=== PATIENT | female | born 1970 | race Caucasian/White ===

== ENCOUNTER 2017-10-14 13:05 | Emergency (ER) | payer BC, OTHER ==
[~2017-10-14] VITALS: Ht 157.5 cm; Wt 113.0 kg
[~2017-10-14 13:05] MED LIST: CYAN3INJ; Ferrous Sulfate PO
[2017-10-14 13:09] VITALS: TEMP 36.7; Ht 157.5 cm; Wt 113.0 kg
[2017-10-14] MEDS ORDERED: IRON20IN IV (13:29)
[2017-10-14] MEDS ORDERED: CYNI1000 INJ (13:29)
--- NOTE | 2017-10-14 14:45 | EMERGENCY ROOM VISIT NOTE ---
History Report prepared by Daniel: Wendy Bajwa Under the Supervision of: Dr. Kobe Lindsey D.O. First contact with patient: 13:14 Chief Complaint: KNEEPAIN Stated Complaint: KNEE PAIN History of Present Illness The patient is a 46 year old female who presents to the Emergency Room with complaints of worsening right knee pain beginning yesterday. She developed some pain behind her right knee yesterday that radiated down into her lower right leg. She thought that it might be arthritis. This morning she woke up and her pain was worse. The patient reports a "pulling" pain behind her right knee that is worse with walking. She states that "shoots" down her right leg with walking. She rates her pain as a 6/10 in severity. She went to urgent care today and had x-rays. They revealed some arthritis but the patient states they were worried about a blood clot so they sent her to the ED for further evaluation. The patient denies chest pain, shortness of breath, and recent trauma or injury to her leg. She denies any recent surgeries or long trips. She does not take any blood thinners. Source of History: patient Onset: yesterday Position: knee (right) Symptom Intensity: 6/10 Quality: other (pulling/shooting) Timing: worsening Modifying Factors (Worsening): other (walking) Associated Symptoms: No chest pain, No SOB Note: Pt denies recent trauma, injury, surgery, long trips. Review of Systems See HPI for pertinent positives & negatives. A total of 10 systems reviewed and were otherwise negative. Past Medical & Surgical Medical Problems: (1) arthritis in left knee (2) broken ankles bilaterally (3) broken right wrist Family History Hypertension Social History Smoking Status: Never Smoker Alcohol Use: occasionally Marital Status: single Housing Status: lives with family Occupation Status: employed Current/Historical Medications Scheduled Cyanocobalamin (Cyanocobalamin), 1 DOSE INJ 2XMONTHLY Iron Sucrose (Venofer), 1 DOSE IV Q6MO Allergies Coded Allergies: Latex1 -Allergic Contact Dermititis (Verified Adverse Reaction, Mild, SKIN REACTION, 10/14/17) Physical Exam Vital Signs Date Time Temp Pulse Resp B/P (MAP) Pulse Ox O2 Delivery O2 Flow Rate FiO2 10/14/17 14:55 75 20 119/81 98 10/14/17 14:16 74 16 142/77 98 Room Air 10/14/17 13:09 36.7 87 18 172/80 98 Room Air Physical Exam CONSTITUTIONAL/VITAL SIGNS: Reviewed / noted above. GENERAL: Non-toxic in appearance. INTEGUMENTARY: Warm, dry, and Bradley. HEAD: Normocephalic. EYES: without scleral icterus or trauma. ENT/OROPHARYNX: clear and moist. LYMPHADENOPATHY/NECK: Is supple without lymphadenopathy or meningismus. RESPIRATORY: Lungs clear and equal. CARDIOVASCULAR: Regular rate and rhythm. GI/ABDOMEN: Soft and nontender. No organomegaly or pulsatile mass. No rebound or guarding. Normal bowel sounds. EXTREMITIES: Warm and well perfused. Mild tenderness to popliteal region of right leg, mild fullness of that area. BACK: No CVA tenderness. NEUROLOGICAL: Intact without focal deficits. PSYCHIATRIC: normal affect. MUSCULOSKELETAL: Normally developed with good muscle tone. Medical Decision & Procedures ER Provider Diagnostic Interpretation: Radiology results as stated below per my review and radiologist interpretation: ULTRASOUND R VENOUS DOPP LOWER EXT UNILAT CLINICAL HISTORY: Right leg swelling COMPARISON STUDY: No previous studies for comparison. FINDINGS: Real-time and color flow Doppler imaging were performed. Flow was seen within the femoral, popliteal and calf veins with no intraluminal thrombus demonstrated. The saphenous vein is patent. IMPRESSION: No evidence of right lower extremity DVT Electronically signed by: Xiang Higgins M.D. 10/14/2017 2:42 PM Dictated Date/Time: 10/14/2017 2:42 PM ED Course 1314: Previous medical records were reviewed. The patient was evaluated in room B8. A complete history and physical examination was performed. 1447: I reassessed the patient at this time. She is feeling better and resting comfortably. I discussed the results and treatment plan with the patient. I answered all pertaining questions that she had. She expressed understanding and verbalized agreement. The patient will be discharged home. Medical Decision Differential diagnosis: Etiologies such as DVT, musculoskeletal, infection, joint effusion, trauma, lymphedema, idiopathic, CHF, as well as others were entertained. This is a 46-year-old female who presents to the ED with a chief complaint of right-sided knee pain. The patient states that she was seen at urgent care and had some x-rays that showed some osteoarthritis. She reports that she was sent here for ultrasound to rule out DVT. She denies any other symptoms such as fevers, chest pains or shortness of breath. Her exam reveals some mild fullness and tenderness to the posterior right knee in the popliteal region. There is no significant edema compared to the other side. Ultrasound of the leg did not show evidence of DVT. The patient was told the results. She is felt to be stable for discharge. Medication Reconcilliation Current Medication List: was personally reviewed by me Blood Pressure Screening Patient's blood pressure: Elevated blood pressure Blood pressure disposition: Referred to PCP Impression Primary Impression: Knee pain Scribe Attestation The scribe's documentation has been prepared under my direction and personally reviewed by me in its entirety. I confirm that the note above accurately reflects all work, treatment, procedures, and medical decision making performed by me. Departure Information Dispostion Home / Self-Care Referrals Quinten Karimi,D.O. (PCP) Patient Instructions My [facility] Additional Instructions Take Tylenol/Motrin as needed for pain. Follow-up with orthopedist for further evaluation if your symptoms persist. Ultrasound did not show DVT.
[2017-10-14 14:55] VITALS: BP 119/81; PULSE 75; O2SAT 98
== END 2017-10-14 14:56 | disposition home or self-care (01) ==
LOC: C.EDB 13:08
DX: M25.561 Pain in right knee (principal); M17.12 Unilateral primary osteoarthritis, left knee; Z82.49 Family history of ischemic heart disease and other diseases of the circulatory system; Z91.040 Latex allergy status; Z79.899 Other long term (current) drug therapy

== ENCOUNTER 2021-12-13 09:51 | Observation (INO) ==
--- NOTE | 2021-11-12 11:55 | PAT Medication Instructions ---
Medication Instructions Date of Service November 12, 2021 Home Medications Medication Instructions Recorded atorvastatin 40 mg tablet 40 mg PO HS #30 tab 09/03/18 nitroglycerin 0.4 mg sublingual 0.4 mg SUBLINGUAL UD PRN #30 tab 09/03/18 tablet (Nitrostat) ondansetron HCl 4 mg tablet 4 mg PO Q8 PRN #15 tab 11/02/20 cyanocobalamin (vitamin B-12) 1,000 mcg/mL injection solution 1 dose IM atorvastatin 40 mg tablet 40 mg PO HS nitroglycerin 0.4 mg sublingual tablet (Nitrostat) 0.4 mg SUBLINGUAL UD PRN aspirin 81 mg tablet,delayed release 81 mg PO QAM isosorbide mononitrate 60 mg tablet,extended release 24 hr 60 mg PO QAM pantoprazole 40 mg tablet,delayed release 40 mg PO QAM sertraline 25 mg tablet 25 mg PO QAM losartan 25 mg tablet 12.5 mg PO QAM metoprolol succinate 50 mg tablet,extended release 24 hr 25 mg PO QAM ondansetron HCl 4 mg tablet 4 mg PO Q8 PRN potassium 99 mg tablet 99 mg PO QAM Continue as directed nitroglycerin 0.4 mg sublingual tablet (Nitrostat) 0.4 mg SUBLINGUAL UD PRN (if needed) cyanocobalamin (vitamin B-12) 1,000 mcg/mL injection solution 1 dose IM DO NOT take the morning of surgery losartan 25 mg tablet 12.5 mg PO QAM potassium 99 mg tablet 99 mg PO QAM Take morning of surgery With a small sip of water, OTHERWISE NOTHING TO EAT OR DRINK AFTER MIDNIGHT: aspirin 81 mg tablet,delayed release 81 mg PO QAM (continue as normal unless told otherwise by surgeon) isosorbide mononitrate 60 mg tablet,extended release 24 hr 60 mg PO QAM pantoprazole 40 mg tablet,delayed release 40 mg PO QAM sertraline 25 mg tablet 25 mg PO QAM metoprolol succinate 50 mg tablet,extended release 24 hr 25 mg PO QAM ondansetron HCl 4 mg tablet 4 mg PO Q8 PRN (if needed) Take evening before surgery atorvastatin 40 mg tablet 40 mg PO HS ondansetron HCl 4 mg tablet 4 mg PO Q8 PRN (if needed) Other Notes If you have any questions please call us at [phone] or [phone] or [phone] or [phone]
--- NOTE | 2021-11-13 10:59 | Anesthesiology Consultation ---
Date of Service November 13, 2021 Assessment & Plan (1) Encounter for pre-operative examination: - upcoming cardiology appointment prior to surgery for routine follow-up 12/06, will have pre-op evaluation also coordinated. Awaiting cardiology pre-op evaluation. - COVID screening: Per assessment on 11/13/2021: Travel screen negative, no known COVID-19 positive contacts or current COVID-19 related symptoms in past 2 weeks. Surgeon arranging preop COVID testing, scheduled 12/13/2021. Awaiting results. Pt confirmed understanding is to go for pre-op COVID test as positive COVID test was more than 3 months ago. Chart Review Chart Review: Pending: Refer to Additional Notes / Consult section and Patient seen in Pre Admission Testing Teaching & Discussion Pre-Anesthesia Teaching/Discussion Notes: Instructed NPO after midnight before surgery, except medications with 15 cc of water. Medication instructions provided according to the PAT guidelines. History Surgery Operation Date: 12/13/21 07:00 Proposed Procedures p Left Total Knee Arthroplasty - Jaspreet Hodge, Height/Weight Height: 5 ft 2 in Weight: 135.9 kg Allergies Allergy/AdvReac Type Severity Reaction Status Date / Time clopidogrel [From Plavix] Allergy Intermediate Rash Verified 11/08/21 10:25 latex AdvReac Intermediate Rash Verified 11/08/21 10:25 Medications Home Medications Medication Instructions Recorded Confirmed Last Taken cyanocobalamin (vitamin B-12) 1 dose IM Q14D 09/01/18 11/12/21 2 Weeks Ago 1,000 mcg/mL injection solution ~10/18/20 atorvastatin 40 mg tablet 40 mg PO HS #30 tab 09/03/18 11/12/21 10/31/20 20:00 nitroglycerin 0.4 mg sublingual 0.4 mg SUBLINGUAL UD PRN #30 tab 09/03/18 11/12/21 09/27/20 tablet (Nitrostat) aspirin 81 mg tablet,delayed 81 mg PO QAM 11/08/18 11/12/21 10/31/20 09:00 release isosorbide mononitrate 60 mg 60 mg PO QAM 11/08/18 11/12/21 11/01/20 10:00 tablet,extended release 24 hr pantoprazole 40 mg tablet,delayed 40 mg PO QAM 11/08/18 11/12/21 11/01/20 10:00 release sertraline 25 mg tablet 25 mg PO QAM 11/08/18 11/12/21 10/31/20 09:00 losartan 25 mg tablet 12.5 mg PO QAM tab 03/10/19 11/12/21 11/01/20 10:00 metoprolol succinate 50 mg 25 mg PO QAM tab 10/31/20 11/12/21 11/01/20 10:00 tablet,extended release 24 hr ondansetron HCl 4 mg tablet 4 mg PO Q8 PRN #15 tab 11/02/20 11/12/21 Unknown potassium 99 mg tablet 99 mg PO QAM 11/08/21 11/12/21 Unknown Past Medical History Medical History (Updated 11/13/21 @ 11:06 by Doorta Tavares PA-C) Anxiety and depression BMI 50.0-59.9, adult 57.6 Bowel obstruction hx, 2009 CAD (coronary artery disease) Per 09/02/2018 cardiac cath (done for NSTEMI): Severe CAD involving small circumflex PL 1 branch with EVIN 3 flow. Moderate nonobstructive CAD involving small D2, small to medium caliber D3, circumflex, circumflex PDA. Dyslipidemia GERD (gastroesophageal reflux disease) controlled, stable per pt Gestational diabetes mellitus (GDM) HX History of anesthesia reaction SLOW TO WAKE UP History of COVID-19 06/2021; fever, body aches, chills, cough, sob; resolved. History of HPV infection HX HPV Hypertension controlled, stable per pt Morbid obesity Non-ST elevation myocardial infarction (NSTEMI) 09/01/18. Cardiac cath showed severe single vessel dz not amenable to PCI. Medical therapy recommended, with DAPT x 1 yr. Osteoarthritis of knees, bilateral Patient denies h/o stroke, seizures, heart attack, heart failure, blood clots or blood transfusions. Exercise / Class Metabolic Activity III < 4 Walking/Shop/Light housework (denies CP or SOB, no FOS in home) Past Family History Family History Sister Myocardial infarction, Onset Age: 32 Hypertension Ovarian cancer Father Congestive heart failure Hypercholesterolemia Hypertension Colorectal cancer Mother Breast cancer Uterine cancer Other Cancer Family history of colon cancer in father Past Surgical History Surgical History (Updated 11/13/21 @ 11:22 by Dorota Tavares PA-C) Family history of reaction to anesthesia FATHER - SLOW TO WAKE UP History of appendectomy History of arthroscopy of left shoulder 11/01/20 [facility]: LMA#4 x 1. No post-op issues per anesthesia progress note. History of cardiac catheterization Severe CAD involving small circumflex PL one branch which appeared to be too small for PCI. Medical therapy was recommended. History of gastric bypass 2012 History of intestinal surgery for bowel obstruction after delivery, denies ever having colostomy History of tonsillectomy and adenoidectomy History of wisdom tooth extraction Previous section + BTL S/P tubal ligation Past Anesthesia History Other (slow to wake) History of PONV No Hx of Motion Sickness and History of PONV Social History Smoking Status: Never smoker Do You Dip or Chew Tobacco: No Hx Alcohol Use: No Hx Substance Use: No substance use type: does not use Review of Systems Snoring, denies witnessed apneas. Sleep study 2009: positive for sleep apnea, resolved after gastric gypass but has had recurrence of symptoms with gradual weight gain; denies recent testing. Intermittent nonproductive cough when lays down with post-nasal drainage. Patient denies chest pain, shortness of breath, dyspnea on exertion, fever, chil ls, cough, wheezing, or palpitations. Physical Exam Vital Signs Vitals BP 118/80 P 71 TEMP 98.6 SP02 97% on RA RESP 16 Physical Full cervical extension range of motion without pain Full TMJ range of motion TMD 3.5 finger breaths Mallampati Score 3 Dentition: intact, implant right upper front, several missing right lower side teeth, one bridge-pt unsure of location; denies chipped or loose teeth Lungs: normal respiratory effort. Clear throughout to auscultation, no adventitious breath sounds Cardiac: regular rate and rhythm, no murmurs noted Carotid arteries: negative bruit bilat Lab Results Anesthesia Preop Results Results Anesthesia Widget: WBC 8.42 K/uL (4.8-10.8) 11/13/21 Hgb 13.3 g/dL (12.0-16.0) 11/13/21 Hct 39.8 % (37-47) 11/13/21 Plt 306 K/uL (130-400) 11/13/21 Na 140 mmol/L (136-145) 11/13/21 K 4.3 mmol/L (3.5-5.1) 11/13/21 Cl 109 mmol/L (98-107) H 11/13/21 CO2 26 mmol/L (21-32) 11/13/21 BUN 12 mg/dl (6-23) 11/13/21 Creat 0.73 mg/dl (0.6-1.2) 11/13/21 Glucose Level 95 mg/dl (70-99(Fasting)) 11/13/21 PT 10.7 Seconds (9.0-12.0) 11/13/21 PTT 27.2 Seconds (21.0-31.0) 11/13/21 INR 1.0 (0.9-1.1) 11/13/21 Blood Type A Positive 11/13/21 Antibody Screen NEGATIVE 11/13/21 Testing Electrocardiogram Date: 11/13/21 NSR, rate 70 bpm Incomplete RBBB Chest X-Ray Date: 11/13/21 FINDINGS: No lines and tubes are seen. The cardiomediastinal silhouette is normal. The lungs are clear. No evidence of pleural effusion or pneumothorax. IMPRESSION: No acute chest disease. Echocardiogram Date: 09/02/18 EF 60-65% No regional wall motion abnormalities Mild cLVH No significant diastolic dysfunction No significant valvular abnormalities Cardiac Catheterization Date: 09/02/18 Left main: without significant CAD. LAD: There is no significant CAD within the LAD. small caliber D2 with proximal to mid 50-70% stenosis. EVIN 3 flow. There is a small to medium caliber D3 with proximal 50-60% stenosis and mid diffuse 50% stenosis. Circumflex: The circumflex is large and codominant. Mid circumflex diffuse 20%. Distal circumflex 20-30%. There is a small caliber PL with mid 70 to 80% stenosis at the bifurcation of small superior branch. EVIN 3 flow. Circumflex PDA with diffuse proximal 50-60% smooth stenosis. Small PL 2 without significant CAD. Right coronary artery: The RCA is large and codominant. No significant CAD within the RCA, PDA, or PL branch. Impression: 1. Severe CAD involving small circumflex PL 1 branch with EVIN 3 flow. 2. Moderate nonobstructive CAD involving small D2, small to medium caliber D3, circumflex, circumflex PDA. 3. Normal LVEDP. 4. No aortic stenosis. Plan: 1. Medical therapy is recommended. PL1 appears too small for PCI. Images were reviewed by interventional Cardiology. 2. Initiate Plavix for 1 year. 3. High-intensity statin therapy, beta-aruna, another antianginal agents as necessary
--- NOTE | 2021-12-12 14:45 | History & Physical Report ---
Date of Service December 12, 2021 Assessment & Plan (1) Osteoarthritis of left knee: We will proceed with a left total knee arthroplasty. Postoperatively she will be started on aspirin for DVT prophylaxis and kept overnight for postop medical management. She plans to use energy physical therapy upon discharge. History of Present Illness Chief Complaint: Osteoarthritis of the left knee. Primary Care Provider: María Elena Rodriguez Blake Palmer is a pleasant 50-year-old female who has been dealing with chronicincreasing left knee pain. She has a history of gastric bypass surgery, but she still is overweight. Her knees are limiting her daily activities. She has really been trying to lose weight. She has had multiple injections of her knee without relief. This is to the point where she cannot continue to live with her knees the way they are. X-rays and clinical examination have been diagnostic for advanced osteoarthritis of the left knee. After failing conservative treatment, she has elected proceed with a left total knee arthroplasty.. Allergies Allergy/AdvReac Type Severity Reaction Status Date / Time clopidogrel [From Plavix] Allergy Intermediate Rash Verified 12/11/21 10:07 latex AdvReac Intermediate Rash Verified 12/11/21 10:07 Home Medications Medication Instructions Recorded Confirmed Type cyanocobalamin (vitamin B-12) 1 dose IM Q14D 09/01/18 12/11/21 History 1,000 mcg/mL injection solution nitroglycerin 0.4 mg sublingual 0.4 mg SUBLINGUAL UD PRN #30 tab 09/03/18 12/11/21 Rx tablet (Nitrostat) aspirin 81 mg tablet,delayed 81 mg PO QAM 11/08/18 12/11/21 History release isosorbide mononitrate 60 mg 60 mg PO QAM 11/08/18 12/11/21 History tablet,extended release 24 hr pantoprazole 40 mg tablet,delayed 40 mg PO QAM 11/08/18 12/11/21 History release sertraline 25 mg tablet 25 mg PO QAM 11/08/18 12/11/21 History losartan 25 mg tablet 12.5 mg PO QAM tab 03/10/19 12/11/21 History metoprolol succinate 50 mg 25 mg PO QAM tab 10/31/20 12/11/21 History tablet,extended release 24 hr ondansetron HCl 4 mg tablet 4 mg PO Q8 PRN #15 tab 11/02/20 12/11/21 Rx potassium 99 mg tablet 99 mg PO QAM 11/08/21 12/11/21 History atorvastatin 40 mg tablet 40 mg PO HS #90 tab 12/02/21 12/11/21 Rx tramadol 50 mg tablet 50 mg PO DAILY PRN 12/09/21 12/11/21 History Past Med/Surg History Medical History Anxiety and depression BMI 50.0-59.9, adult 57.6 Bowel obstruction hx, 2009 CAD (coronary artery disease) Per 09/02/2018 cardiac cath (done for NSTEMI): Severe CAD involving small circumflex PL 1 branch with EVIN 3 flow. Moderate nonobstructive CAD involving small D2, small to medium caliber D3, circumflex, circumflex PDA. Dyslipidemia GERD (gastroesophageal reflux disease) controlled, stable per pt Gestational diabetes mellitus (GDM) HX History of anesthesia reaction SLOW TO WAKE UP History of COVID-19 06/2021; fever, body aches, chills, cough, sob; resolved. History of HPV infection HX HPV Hypertension controlled, stable per pt Morbid obesity Non-ST elevation myocardial infarction (NSTEMI) 09/01/18. Cardiac cath showed severe single vessel dz not amenable to PCI. Medical therapy recommended, with DAPT x 1 yr. Osteoarthritis of knees, bilateral Surgical History Family history of reaction to anesthesia FATHER - SLOW TO WAKE UP History of appendectomy History of arthroscopy of left shoulder 11/01/20 [facility]: LMA#4 x 1. No post-op issues per anesthesia progress note. History of cardiac catheterization Severe CAD involving small circumflex PL one branch which appeared to be too small for PCI. Medical therapy was recommended. History of gastric bypass 2012 History of intestinal surgery for bowel obstruction after delivery, denies ever having colostomy History of tonsillectomy and adenoidectomy History of wisdom tooth extraction Previous section + BTL S/P tubal ligation Family History Sister Myocardial infarction, Onset Age: 32 Hypertension Ovarian cancer unsure of this as she is not in contact Father Congestive heart failure Hypercholesterolemia Hypertension Colorectal cancer Mother Breast cancer Uterine cancer Other Cancer Family history of colon cancer in father Social History Smoking Status: Never smoker Second Hand Exposure: No; Hx Alcohol Use: No Hx Substance Use: No Preferred Language: Lithuanian Communication Ability: Effective Visual Impairment: No Limitations Hearing Ability: Normal Cashier Gambling Required: No Beliefs That Will Affect Care: None marital status: Single Current Living Situation: Family Current Living Situation Comment: DAUGHTER current occupational status: employed current occupation: [employer] currently Feels Safe at Home: Yes Assistive Devices: Glasses Review of Systems All systems reviewed & are unremarkable except as noted in HPI & below. Physical Exam On physical examination of the left knee, she has a slight varus deformity. She has range of motion of 0 to 120 degrees no instability. She has pain of the distal medial femoral condyle and over the medial joint line. Constitutional WD/WN, vitals as above Eyes PERRL, conjunctivae normal, anicteric sclerae ENMT external ear and nose normal, oropharynx normal Neck trachea midline, no thyromegaly Respiratory normal respiratory effort Cardiovascular RRR, no murmur, no edema Gastrointestinal (Abdomen) normal bowel sounds, soft, nontender, no hepatosplenomegaly Psychiatric A+Ox3, euthymic affect Results & Data Results & Data Laboratory Results . Diagnostic Findings X-rays of the left knee show advanced osteoarthritis with joint space narrowing, osteophyte formation, and [id number] articulation. PG Care Time/CCT Total # of Minutes Spent Total Time Spent with Patient: Total time spent is greater than 50% in coordination of care (as documented) at patient's floor/unit and/or counseling patient: Coding Level of Care Code None Diagnoses Osteoarthritis of left knee M17.12
[~2021-12-13 09:51] MED LIST changes: +ACETAMINOPHEN 500 MG TAB PO SCH; +BUPIVACAINE 0.5 % 5 MG/1 ML PF 10ML VIAL ONE; -CYAN3INJ; +FAMOTIDINE 20 MG TAB PO SCH; -Ferrous Sulfate PO; +GABAPENTIN 300 MG CAP PO SCH; +Ketorolac (*for OR use only*) 30 MG, dexAMETHasone 4 MG, KETAMINE HCL (**OR use only) 1... INFIL SCH; +LR 500ML BOLUS, THEN 15ML/HR IV SCH; +LR 60ML/HR IV SCH; +ROPIVACAINE 0.5% 5 MG/ML 30 ML VIAL ONE; +TRANEXAMIC ACID 1,000 MG **IV Intra-op IV SCH; +TRANEXAMIC ACID 1,000 MG **IV Pre-op IV SCH; +VANCOMYCIN HCL 2,000 MG in SODIUM CHLORIDE 0.9% 500 ML IV SCH; +dexAMETHasone 4 MG TAB PO SCH
--- NOTE | 2021-12-13 10:48 | History & Physical Bridge Note ---
Date of Service December 13, 2021 History & Physical Bridge Note I have examined the patient, reviewed the History & Physical and in the interval since the performance of the History & Physical I have noted the following changes of clinical significance: no changes noted
[2021-12-13] MEDS ORDERED: ATROPINE SULFATE 0.1 MG/ML 10ML SYR IV PRN (12:02)
[2021-12-13] MEDS ORDERED: fentaNYL citrate 100 MCG/2 ML VIAL IV PRN (12:02)
[2021-12-13] MEDS ORDERED: ONDANSETRON INJ 2 MG/ML 2 ML VIAL IV PRN ×2 (12:02→17:08)
[2021-12-13] MEDS ORDERED: HYDROmorphone INJ 2 MG/ML SYR/VIAL IV PRN (12:02)
[2021-12-13] MEDS ORDERED: ePHEDrine sulfate 50 MG/ML AMP IV PRN (12:02)
[2021-12-13] MEDS ORDERED: MIDAZOLAM HCL 1 MG/ML 2ML VIAL ONE (12:20)
[2021-12-13] MEDS ORDERED: ORTHO JOINT ANESTHETIC ONE (13:02)
[2021-12-13] MEDS ORDERED: PROPOFOL IV EMULSION 10 MG/ML 20 ML VIAL IV ONE ×2 (14:03→14:15)
--- NOTE | 2021-12-13 15:24 | XRay Report ---
XR knee LT 1 or 2V routine CLINICAL HISTORY: Postoperative evaluation. COMPARISON: Left knee radiographs March 07, 2021. FINDINGS: Alignment of the total left knee arthroplasty is anatomic. There is no periprosthetic frac ture or unexpected radiopaque foreign body. There are skin hayde. IMPRESSION: Expected findings following total left knee arthroplasty. ACT 112: Negative or not required by law. Electronically signed by: Sampson Amador M.D. 12/13/2021 3:22 PM
--- NOTE | 2021-12-13 15:41 | Anesthesiology Progress Note ---
Date of Service December 13, 2021 Anesthesia Post Procedure Vital Signs Vital Signs: Temp Pulse Resp BP Pulse Ox 12/13/21 15:35 63 16 120/75 97 12/13/21 15:20 63 18 122/74 98 12/13/21 15:10 63 18 119/72 98 12/13/21 15:01 97.5 F L 63 18 123/68 100 12/13/21 11:00 98.1 F 69 20 145/75 H 99 Pain Intensity Left Knee: Pain Intensity: 2 Transfer of Care Handoff Completed per policy Notes Mental Status: alert / awake / arousable and participated in evaluation Patient Amnestic to Procedure: Yes Nausea / Vomiting: adequately controlled Pain: adequately controlled Airway Patency, RR, SpO2: stable & adequate BP & HR: stable & adequate Hydration State: stable & adequate Anesthetic Complications: no major complications apparent and Pt Satisfied with anesthetic care
[2021-12-13] MEDS ORDERED: VANCOMYCIN CONSULT ACTIVE PRN ×2 (15:54→17:08)
[2021-12-13] MEDS ORDERED: NALOXONE HCL 0.4 MG/1 ML VIAL/CARP IV PRN (17:08)
[2021-12-13] MEDS ORDERED: METOCLOPRAMIDE HCL INJ 5 MG/ML 2 ML VIAL IV PRN (17:08)
[2021-12-13] MEDS ORDERED: ONDANSETRON 4 MG OD TAB PO PRN (17:08)
[2021-12-13] MEDS ORDERED: bisacodyL 10 MG SUPP PR PRN (17:08)
[2021-12-13] MEDS ORDERED: oxyCODONE HCL IR 5 MG TAB (IMMEDIATE RELEASE) PO PRN (17:08)
[2021-12-13] MEDS ORDERED: MAGNESIUM HYDROXIDE SUSP 30 ML UDC PO PRN (17:08)
[2021-12-13] MEDS ORDERED: NITROGLYCERIN SL 0.4 MG/TAB TAB SL PRN (17:08)
[2021-12-13] MEDS: KETOROLAC 30 MG/ML VIAL IV SCH (17:42)
[2021-12-13] MEDS: SODIUM CHLORIDE 0.9% 1000ML 1,000 ML IV SCH (17:43)
[2021-12-13] MEDS: ASPIRIN 81 MG ECTAB PO SCH (20:56)
[2021-12-13] MEDS: DOCUSATE SODIUM 100 MG CAP PO SCH (20:56)
[2021-12-13] MEDS ORDERED: SENNA 8.6 MG TAB PO SCH (21:00)
[2021-12-13] MEDS ORDERED: ATORVASTATIN 40 MG TAB PO SCH (21:00)
[2021-12-13] MEDS: ACETAMINOPHEN 500 MG TAB PO SCH (22:19)
[2021-12-13] MEDS: HYDROmorphone INJ 0.5 MG/0.5 ML SYR IV PRN (22:20)
[2021-12-13] MEDS ORDERED: VANCOMYCIN HCL 2,000 MG in SODIUM CHLORIDE 0.9% 500 ML IV SCH (23:00)
[2021-12-14] MEDS: KETOROLAC 30 MG/ML VIAL IV SCH ×3 (00:13→12:34)
[2021-12-14] MEDS ORDERED: VANCOMYCIN HCL 2,000 MG in SODIUM CHLORIDE 0.9% 500 ML IV SCH (01:00)
[2021-12-14] MEDS: HYDROmorphone INJ 0.5 MG/0.5 ML SYR IV PRN (03:52)
[2021-12-14] MEDS: SODIUM CHLORIDE 0.9% 1000ML 1,000 ML IV SCH (05:02)
[2021-12-14] MEDS: ACETAMINOPHEN 500 MG TAB PO SCH (06:27)
--- NOTE | 2021-12-14 07:03 | Orthopedic Progress Note ---
Date of Service December 14, 2021 Assessment & Plan (1) Status post left knee replacement: Overall she is doing fairly well. She is not any much pain in the left knee. She will be seen by physical therapy today for ambulation and range of motion exercises. The dressing can be changed after physical therapy. She is on aspirin for DVT prophylaxis. She can be discharged home later today. She will follow-up with orthopedics in 2 weeks. Due to her previous history of multiple infections with procedures, she will be discharged home on oral Bactrim and doxycycline. Boston Palmer was seen and examined at bedside this morning. Overall she is doing fairly well. She has been ambulating a little bit in the room but not much. The feeling has come back in her legs. She has no complaints. Review of Systems All systems reviewed & are unremarkable except as noted in HPI & below. Physical Exam On physical examination of the left knee, the dressing is clean and dry. Her leg is out in full extension. She has active dorsiflexion plantarflexion of the left ankle. Results & Data Results & Data Laboratory Results . Diagnostic Findings Postoperative x-rays of the left knee show the prosthesis to be in anatomic alignment without any evidence of fracture, desiccation, or loosening. PG Care Time/CCT Total # of Minutes Spent Total Time Spent with Patient: Total time spent is greater than 50% in coordination of care (as documented) at patient's floor/unit and/or counseling patient: Coding Level of Care Code 74291 Post Operative Follow-Up Diagnoses Status post left knee replacement Z96.652
--- NOTE | 2021-12-14 07:05 | Discharge Summary ---
Date of Service December 14, 2021 Admission HPI (Per Admitting) Estela is a pleasant 50-year-old female who has been dealing with chronicincreasing left knee pain. She has a history of gastric bypass surgery, but she still is overweight. Her knees are limiting her daily activities. She has really been trying to lose weight. She has had multiple injections of her knee without relief. This is to the point where she cannot continue to live with her knees the way they are. X-rays and clinical examination have been diagnostic for advanced osteoarthritis of the left knee. After failing conservative treatment, she has elected proceed with a left total knee arthroplasty.. Admission Exam (Per Admitting) On physical examination of the left knee, she has a slight varus deformity. She has range of motion of 0 to 120 degrees no instability. She has pain of the distal medial femoral condyle and over the medial joint line. Principal Diagnosis Same as "Discharge Diagnosis" noted below under Discharge Instructions. Discharge Exam On physical examination of the left knee, the dressing is clean and dry. Her leg is out in full extension. She has active dorsiflexion plantarflexion of the left ankle. Discharge Data Procedures Performed Operation Date: 12/13/21 12:30 Actual Procedures p Left Total Knee Arthroplasty(Left) - Jaspreet Hodge DO Ordered Studies 12/13/21 05:00 US - OR guided needle placemen Routine Hospital Course (1) Status post left knee replacement: On December 1301/2022 Wendy arrived at [facility] and underwent a left knee replacement without complication. She had a spinal anesthetic. Postoperatively she was started on aspirin for DVT prophylaxis and transferred to the general orthopedic floors. Her hospital course was uneventful. On postop day #1 her vital signs were stable and her pain was well controlled. She was able to participate well with physical therapy doing ambulation and range of motion exercises. She was then discharged home. She will follow-up with orthopedics in 2 weeks. Due to her history of multiple other infections after surgical procedures, she was given vancomycin perioperatively and was sent home on oral doxycycline and Bactrim. PG Care Time/CCT Total # of Minutes Spent Total Time Spent with Patient: Total time spent is greater than 50% in coordination of care (as documented) at patient's floor/unit and/or counseling patient: Discharge Plan Discharge Items Patient Disposition: Home - Home Health Services Reason For Visit: Left Knee Degenerative Joint Disease Discharge Diagnosis: Left knee replacement Activity: As commented below Non-emergency contact: Specialist Call non-emergency contact if: your wound has increased redness and your wound has increased drainage Follow-up/Referrals: María Elena Lozano [Primary Care Provider] - Diet: Regular Addtl Attending Provider Instructions: Activity and Therapy Recommendations: * If you are using [facility] then therapy will be provided at your home until they feel you have accomplished all of your goals. * If you are using [facility] then Physical Therapy will be provided until they feel you are ready to start Outpatient Physical Therapy. * If you are not using home therapy then Outpatient Physical Therapy should start about 3-5 days from your day of surgery. Therapy will last about 6-10 weeks * It is important not to put a pillow under your knee when you are relaxing or sleeping. It is just as important to make sure you are getting your knee perfectly straight as it is to regain your knee bend. * You were shown a series of exercises in the hospital. Do these exercises three times each day including the exercises you were shown in physical therapy. * Get up and walk several times each day. For the first four weeks, try not to stand or walk for more than one hour at a time. If you do stand or walk for more than one hour, you will not hurt anything, but your leg will likely swell. * As you feel comfortable, you may change from the walker or crutches to a cane and then to independent walking. Medications: * Narcotic You will likely be sent home from the hospital with a prescription for the narcotic pain medication that worked best throughout your stay. * Aspirin Most patients will be required to take Aspirin 81mg twice a day for 6 weeks after surgery. This is obtained [id number] and a prescription is not necessary. * Other medications may be prescribed for specific circumstances. If you have any questions, please call the office at . * Resume previous home medications unless otherwise instructed TEDs/Elastic Stockings: The white elastic stockings help limit swelling and prevent blood clots from forming in your legs.~ The more you wear them, the more they work. Wear them for six weeks. Dressing Care: The dressing can be changed after physical therapy on postop day #1. Daily dry dressing changes for a few days, especially if the incision is still draining some. If the incision is not draining then you may leave the hayde open to air. If there is a little bit of drainage or if the hayde are getting stuck on your clothing then cover the incision with a dry dressing. The hayde will be removed at your 2 week follow-up appointment. Showering: You may shower 5 days from the day of surgery as long as the incision is no longer draining. You may shower with the hayde exposed. Let soapy water run over the hayde and pat them dry. Do not scrub or soak the incision. Things To Watch For: * Drainage from the incision site that occurs more than one week after your surgery. * Increased redness at the incision site. * Fever above 102 degrees Fahrenheit. * Unusual chest pain or shortness of breath. * Call [facility] at with any of the above eliot galloway Follow-Up Visit: Follow-up with Dr. Hodge's PA (Jaspreet Willoughby) 2-3 weeks after your day of surgery. He will remove your hayde and answer any questions. If you have any additional questions or concerns, Dr Hodge is usually in the office at the same time and will be available An appointment was probably scheduled when you signed-up for surgery in the office. If you have any questions call Office Instructions: More detailed instructions as well as Frequently Asked Questions were provided in a folder by our office when you signed-up for surgery. Please review these instructions when you get home. If you have any further questions or concerns, please feel free to call the office at [phone] Pending Studies at Discharge: No Stand-Alone Forms: [facility], Smoking Cessation Medications and DC Order Prescriptions: New oxycodone 5 mg Tablet 5 mg PO Q4H PRN (Reason: pain) Qty: 30 RF: 0 sulfamethoxazole-trimethoprim [Bactrim DS] 800-160 mg tablet 1 tab PO BID 14 Days Qty: 28 RF: 0 doxycycline hyclate 100 mg capsule 100 mg PO BID 10 Days Qty: 20 RF: 0 Continued ondansetron HCl 4 mg tablet 4 mg PO Q8 PRN (Reason: nausea) Qty: 15 RF: 0 atorvastatin 40 mg tablet 40 mg PO HS Qty: 90 RF: 3 tramadol 50 mg tablet 50 mg PO DAILY PRN (Reason: pain) RF: 0 cyanocobalamin (vitamin B-12) 1,000 mcg/mL solution 1 dose IM Q14D RF: 0 nitroglycerin [Nitrostat] 0.4 mg Tablet, Sublingual 0.4 mg Sublingual UD PRN (Reason: chest pain) Qty: 30 RF: 0 isosorbide mononitrate 60 mg tablet extended release 24 hr 60 mg PO QAM RF: 0 pantoprazole 40 mg tablet,delayed release (DR/EC) 40 mg PO QAM RF: 0 sertraline 25 mg tablet 25 mg PO QAM RF: 0 losartan 25 mg tablet 12.5 mg PO QAM RF: 0 metoprolol succinate 50 mg tablet extended release 24 hr 25 mg PO QAM RF: 0 potassium 99 mg Tablet 99 mg PO QAM RF: 0 Changed aspirin 81 mg tablet,delayed release (DR/EC) 81 mg PO BID 42 Days Qty: 0 RF: 0 Discharge Orders: Discharge Order (Routine); Ordered 12/14/21 Ordered By: Jaspreet Hodge Admission Data Admit Date/Time: 12/13/21 15:04 Attending Provider: Jaspreet Hodge Admit Provider: Jaspreet Hodge Primary Care Provider: María Elena Lozano
[2021-12-14] MEDS: ASPIRIN 81 MG ECTAB PO SCH (08:00)
[2021-12-14] MEDS ORDERED: dexAMETHasone 4 MG TAB PO SCH (08:00)
[2021-12-14] MEDS: DOCUSATE SODIUM 100 MG CAP PO SCH (08:00)
[2021-12-14] MEDS ORDERED: SERTRALINE HCL 50 MG TABLET PO SCH (09:00)
[2021-12-14] MEDS ORDERED: NON-FORMULARY MEDICATION (Potassium 99 mg Tablet) PO SCH (09:00)
[2021-12-14] MEDS ORDERED: METOPROLOL SUCC 25MG EXT REL TAB PO SCH (09:00)
[2021-12-14] MEDS ORDERED: PANTOprazole 40 MG TAB PO SCH (09:00)
[2021-12-14] MEDS ORDERED: MULTIVITAMIN TAB PO SCH (09:00)
[2021-12-14] MEDS ORDERED: LOSARTAN POTASSIUM 25 MG TAB PO SCH (09:00)
--- NOTE | 2021-12-31 11:21 | Operative Report ---
PG Post Operative Report Pre & Post Diagnosis Operation Date: 12/13/21 12:30 Pre-Op Diagnosis: Left Knee Degenerative Joint Disease Post-Op Diagnosis: Left Knee Degenerative Joint Disease I identified the patient and participated in the time-out.: Yes Procedure Operation Date: 12/13/21 12:30 Actual Procedures p Left Total Knee Arthroplasty(Left) - Jaspreet Hodge DO Surgeon Jaspreet Hodge DO Faculty Criminal Justice Jaspreet Willoughby PAC Estimated Blood Loss 10 Findings Consistent with Post-Op Diagnosis Specimens Left femoral and tibial bone Complications none Disposition Disposition: Recovery Room Indications Estela is a pleasant 51-year-old female who is been dealing with chronic increasing left knee pain. X-rays and clinical examination are diagnostic for advanced arthritis of the left knee. After failing conservative treatment, she elected to proceed with a left total knee arthroplasty. Description of Procedure Implants used: I used a [employer]rett Persona total knee arthroplasty system with a size 10 PS femur, E tibia with a 30 mm stem extension, 31 oval patella, and a size 12 CPS polyethylene bearing. All components were cemented in place with Biomet cement. Estela arrived [facility] for the above procedure. She was seen in the preoperative holding area and the operative extremity was identified and signed. She was given a preoperative antibiotic, TXA, a spinal anesthetic and an adductor nerve block. She was taken back to the operating room and laid on the table in supine position. She was given basic sedation. The operative knee was then prepped and draped in sterile fashion. A timeout was done, and the patient and the operative extremity was properly identified. A midline incision was made directly over the patella. Dissection was taken down to the extensor mechanism. A subvastus arthrotomy was used. The medial retinaculum was released and the fat pad was mostly excised. The knee was flexed and the ACL, PCL, and meniscus were removed. A drill was sent down the center of the femoral canal followed by an intramedullary belkys. Off that belkys a distal femoral cutting block was placed. 9 mm was resected off the distal femur at 5 of valgus. A posterior referencing AP sizing guide was then placed on the distal femur. The femur measured to be a size 10. 2 drill holes were placed in 3 of external rotation. A 4-in-1 cutting block was then impacted into place. Anterior, posterior, and chamfer cuts were then made. The proximal tibia was then exposed. An external tibial alignment guide was placed. A tibial cut guide was then anchored in place and the proximal tibia was then resected. The posterior aspect of the knee was then opened up and any additional meniscus fragments and osteophytes were removed. The tibia measured to be a size E. The tibial plate was then placed in the appropriate rotation and the tibia was drilled and punched. Trial components were then placed. I used a size 12 medial congruent polyethylene insert. The knee was brought through a full range of motion and felt to be stable. The peg holes for the femoral component were then drilled. The patella was then everted and 9 mm was resected off the posterior aspect of the patella. The patella measured to be a size 31 oval. 3 peg holes were then drilled. A trial patella was placed. The knee was once again brought through a full range of motion and felt to be stable. Trial components were then removed. The surrounding soft tissues were injected with 100 cc of an orthopedic pain control cocktail. All components were then cemented into place with Biomet cement. The final polyethylene insert was then snapped into place. Once cement was dry the tourniquet was deflated. Hemostasis was obtained. A dilute betadyne lavage was then done for 3 minutes. The joint was then irrigated with normal saline solution. The subvastus arthrotomy was then closed with #1 Vicryl suture. The skin was closed with 2-0 Vicryl, 3-0V lock suture, and hayde. A soft compressive dressing was placed. She was then transferred to a hospital bed and taken to the postanesthesia care unit in stable condition. She tolerated the procedure well. Jaspreet Willoughby PA-C, was present for the entire procedure. He was critical for patient positioning, prepping, draping, retraction exposure, wound closure and application of sterile dressing. I attest to the content of the Intraoperative Record and any orders documented therein. Any exceptions are noted below.
== END 2021-12-14 12:54 | disposition home health service (06) ==
LOC: PACUINP 09:51 → ASU 09:51 → 3E 17:05
DX: I10 Essential (primary) hypertension; E78.5 Hyperlipidemia, unspecified; I25.2 Old myocardial infarction; I25.10 Atherosclerotic heart disease of native coronary artery without angina pectoris; M25.762 Osteophyte, left knee; M17.12 Unilateral primary osteoarthritis, left knee; Z79.899 Other long term (current) drug therapy; Z88.8 Allergy status to other drugs, medicaments and biological substances; Z79.82 Long term (current) use of aspirin; Z95.5 Presence of coronary angioplasty implant and graft